=== PATIENT | female | born 1985 | race Caucasian/White ===

== ENCOUNTER 2016-05-04 00:06 | Emergency (ER) | payer SELFPAY | END 2016-05-04 00:25 | disposition left against medical advice (07) | LOC: E/R 00:06 | DX: Z53.21 Procedure and treatment not carried out due to patient leaving prior to being seen by health care provider (principal) ==

== ENCOUNTER 2017-11-21 14:19 | Emergency (ER) | END 2017-11-21 16:36 | disposition left against medical advice (07) ==

== ENCOUNTER 2018-09-23 23:36 | Emergency (ER) | payer SELFPAY ==
[~2018-09-23] VITALS: Ht 165.1 cm; Wt 59.1 kg
[2018-09-23] MEDS ORDERED: SOD CHLORIDE 0.9% 500 ML IV STA (23:39)
[2018-09-23 23:55] VITALS: Ht 165.1 cm; Wt 59.1 kg
--- NOTE | 2018-09-24 03:39 | ERD ---
ER Documentation Chief Complaint Chief Complaint SEIZURE HPI This is a 32-year-old female comes in with seizure. She admits to using methamphetamines. She has had seizures in the past. She had tongue biting but no incontinence. No fevers or chills. No other current complaints. ROS All systems reviewed and are negative except as per history of present illness. Medications Home Meds No Active Prescriptions or Reported Meds Allergies Allergies: Coded Allergies: No Known Allergy (Unverified , 09/24/18) PMhx/Soc Hx Alcohol Use: No Hx Substance Use: No Hx Tobacco Use: No Smoking Status: Never smoker Physical Exam Vitals Vital Signs Date Temp Pulse Resp B/P (MAP) Pulse Ox O2 O2 Flow FiO2 Time Delivery Rate 09/23/18 98.3 112 14 126/78 100 23:55 (94) Physical Exam Const: No acute distress Head: Atraumatic Eyes: Normal Conjunctiva ENT: Normal External Ears, Nose and Mouth. Neck: Full range of motion. No meningismus. Resp: Clear to auscultation bilaterally Cardio: Regular rate and rhythm, no murmurs Abd: Soft, non tender, non distended. Normal bowel sounds Skin: No petechiae or rashes Back: No midline or flank tenderness Ext: No cyanosis, or edema Neur: Awake and alert Psych: Normal Mood and Affect Result Diagram: 09/24/18 0059 09/24/18 0059 Results 24 hrs Laboratory Tests Test 09/23/18 23:58 09/24/18 00:59 09/24/18 01:44 Bedside Glucose 120 mg/dL White Blood Count 14.5 10^3/ul Red Blood Count 4.28 10^6/ul Hemoglobin 11.3 g/dl Hematocrit 35.7 % Mean Corpuscular Volume 83.4 fl Mean Corpuscular Hemoglobin 26.4 pg Mean Corpuscular 31.7 g/dl Hemoglobin Concent Red Cell Distribution Width 14.6 % Platelet Count 424 10^3/UL Mean Platelet Volume 9.5 fl Immature Granulocytes % 0.300 % Neutrophils % 83.6 % Lymphocytes % 9.4 % Monocytes % 6.0 % Eosinophils % 0.1 % Basophils % 0.6 % Nucleated Red Blood Cells % 0.0 /100WBC Immature Granulocytes # 0.050 10^3/ul Neutrophils # 12.1 10^3/ul Lymphocytes # 1.4 10^3/ul Monocytes # 0.9 10^3/ul Eosinophils # 0.0 10^3/ul Basophils # 0.1 10^3/ul Nucleated Red Blood Cells # 0.0 10^3/ul Sodium Level 140 mmol/L Potassium Level 4.3 mmol/L Chloride Level 105 mmol/L Carbon Dioxide Level 24 mmol/L Anion Gap 11 Blood Urea Nitrogen 22 mg/dl Creatinine 0.98 mg/dl Est Glomerular Filtrat > 60 mL/min Rate mL/min Glucose Level 112 mg/dl Calcium Level 9.8 mg/dl Total Bilirubin 0.7 mg/dl Direct Bilirubin 0.00 mg/dl Indirect Bilirubin 0.7 mg/dl Aspartate Amino 26 IU/L Transf (AST/SGOT) Alanine 20 IU/L Aminotransferase (ALT/SGPT) Alkaline Phosphatase 66 IU/L Troponin I < 0.012 ng/ml Total Protein 7.4 g/dl Albumin 4.4 g/dl Globulin 3.00 g/dl Albumin/Globulin Ratio 1.46 Serum HCG, Qualitative NEGATIVE Ethyl Alcohol Level < 10.0 mg/dl Urine Color SEBAS Urine Clarity CLOUDY Urine pH 5.0 Urine Specific Stevenson 1.028 Urine Ketones TRACE mg/dL Urine Nitrite POSITIVE mg/dL Urine Bilirubin NEGATIVE mg/dL Urine Urobilinogen 1+ mg/dL Urine Leukocyte Esterase TRACE Lena/ul Urine Microscopic RBC 17 /HPF Urine Microscopic WBC 11 /HPF Urine Squamous Epithelial Cells FEW /HPF Urine Calcium Oxalate Crystals FEW /HPF Urine Bacteria FEW /HPF Urine Hyaline Casts FEW /HPF Urine Mucus MANY /HPF Urine Hemoglobin 1+ mg/dL Urine Glucose NEGATIVE mg/dL Urine Total Protein 2+ mg/dl Urine Opiates Screen Negative Urine Barbiturates Negative Urine Amphetamines Screen POSITIVE Urine Benzodiazepines Screen Negative Urine Cocaine Screen Negative Urine Cannabinoids Negative Current Medications Medications Dose Sig/Jerrod Start Time Status Last (Trade) Ordered Route PRN Stop Time Admin Dose Reason Admin Sodium 500 ml @ Q1H STAT 09/23/18 DC 09/23/18 Chloride 500 mls/hr IV 23:39 23:51 09/24/18 00:38 Procedures/MDM Medical decision making: This very pleasant patient of seizures. She is been advised stop using methamphetamines. She had no further seizure-like activities. Denies any current issues Departure Diagnosis: Primary Impression: Seizure disorder Condition: Stable Patient Instructions: Seizure, Recurrent [Adult] JOSIAH SHAH Sep 24, 2018 03:38
[2018-09-24 03:51] VITALS: BP 121/76; PULSE 65; RESP 20
== END 2018-09-24 03:51 | disposition home or self-care (01) ==
LOC: E/R 23:36
DX: G40.909 Epilepsy, unspecified, not intractable, without status epilepticus (principal); R40.2142 Coma scale, eyes open, spontaneous, at arrival to emergency department; R40.2242 Coma scale, best verbal response, confused conversation, at arrival to emergency department; R40.2362 Coma scale, best motor response, obeys commands, at arrival to emergency department
CPT/HCPCS: 36415; 70450; 80053; 80307; 81001; 82962; 84484; 84703; 85025; 93005; 99285; J7040